=== PATIENT | female | born 1930 | race Caucasian/White ===

== ENCOUNTER → 2018-02-16 09:50 | Outpatient (CLI) | payer MEDICARE ==
[2014-05-22 10:52] VITALS: BMI 38.6
[~2018-02-16 09:50] MED LIST: ACETAMINOPHEN325 MG PO; ALEVE220 MG PO; ATARAX 25 MG TA25 MG PO; BAYER CHEWABLE81 MG PO; CALCIUM 600+D T1 TA1 PO; CELEXA40 MG PO; GLUCOTROL 5 MG T5 MG PO; MAG-OX 400 MG400 MG PO; MELATONIN 10 M1 EACH PO; MULTI-DAY VITAM1 TAB PO; NITROSTAT0.4 MG SL; PROTONIX40 MG PO; ROCALTROL0.25 MCG PO; SYNTHROID150 MCG PO; VESICARE5 MG PO; ZOCOR40 MG PO
== END | disposition home or self-care (01) ==
LOC: D.MRI 09:50
DX: M54.16 Radiculopathy, lumbar region (principal)